=== PATIENT | male | born 1940 | race Caucasian/White ===

== ENCOUNTER → 2017-06-28 | Outpatient (CLI) | payer BC ==
[2017-06-28 10:12] LABS: BLOOD UREA NITROGEN 16 mg/dl (7-18); BUN/CREATININE RATIO 15.8 (10-20); CALCIUM 9.5 mg/dl (8.5-10.1); CARBON DIOXIDE 28 mmol/L (21-32); CHLORIDE 104 mmol/L (98-107); CHOLESTEROL 186 mg/dl (0-200); CREATININE 0.98 mg/dl (0.60-1.40); GLUCOSE 124 mg/dl (70-99); POTASSIUM 4.3 mmol/L (3.5-5.1); SODIUM 140 mmol/L (136-145)
[2017-06-28 10:15] LABS: ESTIMATED AVERAGE GLUCOSE 126 mg/dl; HA1C FLAG Normal (Normal)
[2017-06-28 10:16] LABS: CHOLESTEROL/HDL RATIO 5.2; HDL CHOLESTEROL 36 mg/dl; LDL CHOLESTEROL CALCULATED 78 mg/dl; TRIGLYCERIDES 358 mg/dl (0-150); VERY LOW DENSITY LIPOPROT CALC 72 mg/dl
== END | disposition home or self-care (01) ==
LOC: C.LAB1850 06:57
PROVIDERS: ATTEND Internal Medicine
DX: I10 Essential (primary) hypertension (principal); E78.5 Hyperlipidemia, unspecified; R73.9 Hyperglycemia, unspecified

== ENCOUNTER → 2017-07-23 | Outpatient (CLI) | payer BC | END | disposition home or self-care (01) | LOC: C.RDSM 15:56 | PROVIDERS: ATTEND Family Medicine Sports Medicine | DX: M25.561 Pain in right knee (principal) ==

== ENCOUNTER → 2017-08-15 | Outpatient (CLI) | payer BC ==
[2017-08-15 12:43] LABS: THYROID STIMULATING HORMONE 2.5 uIu/ml (0.300-4.500)
== END | disposition home or self-care (01) ==
LOC: C.LAB1850 10:15
PROVIDERS: ATTEND Internal Medicine
DX: M79.1 Myalgia (principal)

== ENCOUNTER → 2017-08-19 | Outpatient (CLI) | payer BC | END | disposition home or self-care (01) | LOC: C.LAB1850 09:15 | PROVIDERS: ATTEND Internal Medicine Rheumatology | DX: M54.30 Sciatica, unspecified side (principal); R89.4 Abnormal immunological findings in specimens from other organs, systems and tissues ==

== ENCOUNTER → 2017-08-20 | Outpatient (CLI) | payer BC ==
--- NOTE | 2017-08-20 08:40 | DIAGNOSTIC IMAGING REPORT ---
MRI THE RIGHT KNEE NO CONTRAST CLINICAL HISTORY: Right knee pain. Knee locks up and gives out. COMPARISON STUDY: Conventional radiographic study performed 07/23/2017 FINDINGS: Imaging was performed in the sagittal, coronal, and axial planes. There are no areas of marrow replacement to indicate neoplasm. There is marrow edema within the anterior aspect of the tibial plateau subjacent to the anterior cruciate insertion site. Posterior cruciate ligament appears intact. There is extensive mucoid degeneration within the anterior cruciate ligament The quadriceps and patellar tendons appear intact. The medial and lateral collateral ligaments appear intact. There is a small suprapatellar joint effusion. 6 intra-articular loose bodies are visualized. The largest measures 15 mm. There is medial extrusion of the medial meniscus and there is a complex tear the posterior horn. There are degenerative changes within the lateral meniscus. There is extensive chondrosis involving the medial joint compartment. There is chondromalacia patella. The patellar retinacular structures appear intact. 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 Extrusion of the medial meniscus with a complex tear involving the posterior horn 3. 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 Chondromalacia patella. 4. Mucoid degeneration of the anterior cruciate ligament. Electronically signed by: Oscar Mascorro M.D. 08/20/2017 8:38 AM Dictated Date/Time: 08/20/2017 8:31 AM
--- NOTE | 2017-08-20 08:49 | DIAGNOSTIC IMAGING REPORT ---
SI JOINTS 3 OR MORE VIEWS CLINICAL HISTORY: M54.30 [id number] Nonspecific immunologic [id number] COMPARISON STUDY: No previous studies for comparison. FINDINGS: No fractures are visualized. 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 Degenerative changes are present within the lumbar spine. 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 Electronically signed by: Oscar Mascorro M.D. 08/20/2017 8:47 AM Dictated Date/Time: 08/20/2017 8:46 AM
--- NOTE | 2017-08-20 08:52 | DIAGNOSTIC IMAGING REPORT ---
L-SPINE MIN 4 VIEWS ROUTINE CLINICAL HISTORY: M54.30 [id number] Nonspecific immunologic [id number] COMPARISON STUDY: No previous studies for comparison. FINDINGS: No acute fractures are visualized. There are moderate multilevel degenerative changes. No destructive lesions are evident. There is a grade 1 spondylolisthesis of L4 on L5. There is mild to moderate multilevel facet joint arthropathy. IMPRESSION: 1. Moderate multilevel degenerative change 2. No fractures identified. Electronically signed by: Oscar Mascorro M.D. 08/20/2017 8:51 AM Dictated Date/Time: 08/20/2017 8:50 AM
== END | disposition home or self-care (01) ==
LOC: C.MRI 07:08
PROVIDERS: ATTEND Family Medicine Sports Medicine
DX: M54.30 Sciatica, unspecified side (principal); R89.4 Abnormal immunological findings in specimens from other organs, systems and tissues; M25.461 Effusion, right knee; D48.0 Neoplasm of uncertain behavior of bone and articular cartilage; S83.241A Other tear of medial meniscus, current injury, right knee, initial encounter; X58.XXXA Exposure to other specified factors, initial encounter

== ENCOUNTER → 2017-08-23 | Outpatient (CLI) | payer BC | LOC: C.RDSM 14:50 | PROVIDERS: ATTEND Orthopaedic Surgery | DX: M25.569 Pain in unspecified knee (principal) ==

== ENCOUNTER → 2017-10-10 | Outpatient (CLI) | payer BC ==
[~2017-10-10] MED LIST: FERR1TAB23 PO; LOSA50TA6 PO; MULT-506 PO
== END | disposition home or self-care (01) ==
LOC: C.LAB1850 07:12
PROVIDERS: ATTEND Internal Medicine
DX: E78.1 Pure hyperglyceridemia (principal); E78.5 Hyperlipidemia, unspecified

== ENCOUNTER → 2017-10-11 | Outpatient (CLI) | payer BC ==
[2017-10-11 16:37] LABS: HEMATOCRIT 48.5 % (42-52); HEMOGLOBIN 16.5 g/dL (14.0-18.0); MEAN CELL VOLUME 93.3 fL (80-100); MEAN CORPUSCULAR HEMOGLOBIN 31.7 pg (25-34); MEAN PLATELET VOLUME 10.1 fL (7.4-10.4); PLATELET COUNT 217 K/uL (130-400); RED CELL DISTRIBUTION WIDTH CV 13.1 % (11.5-14.5); RED CELL DISTRIBUTION WIDTH SD 44.8 fL (36.4-46.3)
[2017-10-11 17:26] LABS: BLOOD UREA NITROGEN 21 mg/dl (7-18); CALCIUM 9.5 mg/dl (8.5-10.1); CARBON DIOXIDE 30 mmol/L (21-32); CREATININE 1.06 mg/dl (0.60-1.40); GLUCOSE 108 mg/dl (70-99); POTASSIUM 3.5 mmol/L (3.5-5.1); SODIUM 139 mmol/L (136-145)
== END | disposition home or self-care (01) ==
LOC: C.LAB1850 15:48
PROVIDERS: ATTEND Physician Assistant
DX: Z01.812 Encounter for preprocedural laboratory examination (principal); M23.40 Loose body in knee, unspecified knee

== ENCOUNTER → 2017-10-21 | Day surgery (SDC) | payer BC ==
[2017-10-09 12:39] VITALS: Ht 180.3 cm; Wt 111.4 kg
[~2017-10-21] VITALS: Ht 180.3 cm; Wt 111.4 kg
[~2017-10-21] MED LIST changes: +ATROPINE SULFATE 0.1 MG/ML 5ML SYR IV PRN; +CEFAZOLIN 2000MG IV PUSH 10 ML IV SCH; +DEXAMETHASONE SOD INJ 4 MG/ML VIAL ONE; +EpHEDrine SULFATE INJ 50 MG/ML AMP IV PRN; +EpHEDrine SULFATE INJ 50 MG/ML AMP ONE; +EpINEphrine HCL INJ 1 MG/ML 5ML SYRINGE ONE; +FENTANYL CITRATE INJ 50 MCG/1 ML 2 ML VIAL IV PRN; +FENTANYL CITRATE INJ 50 MCG/1 ML 2 ML VIAL ONE; +HYDROmorphone INJ 1 MG/ML SYR IV PRN; +LACTATED RINGER'S 1000ML 1,000 ML IV SCH; +LIDO 2%/EPINEPHRINE 1:100000 20 ML VIAL INFIL ONE; +LIDOCAINE HCL 2% 2 ML VIAL (20MG/ML) ONE; +MIDAZOLAM HCL 1 MG/ML 2ML VIAL ONE; +ONDANSETRON INJ 2 MG/ML 2 ML VIAL IV PRN; +ONDANSETRON INJ 2 MG/ML 2 ML VIAL ONE; +OXYCODONE/ACETAMINOPHEN 5-325 TAB PO PRN; +PROPOFOL IV EMULSION 10 MG/ML 20 ML VIAL IV ONE; +SODIUM CHLORIDE 0.9% 1000ML 1,000 ML IV SCH; +SODIUM CHLORIDE 0.9% INJ 10 ML VIAL ONE
--- NOTE | 2017-10-21 06:45 | History & Physical Bridge - [place] ---
H&P Re-Evaluation Bridge Note: I have examined the patient, reviewed the History & Physical and in the interval since the performance of the History & Physical I have noted the following changes of clinical significance: No changes noted
--- NOTE | 2017-10-21 08:14 | [facility] Post Operative Brief Note ---
Immediate Operative Summary Operative Date Oct 21, 2017. Pre-Operative Diagnosis Right Knee Loose Bodies Post-Operative Diagnosis Same Procedure(s) Performed Right Knee Arthroscopic Partial Medial & Partial Lateral Meniscectomies, Loose Body Removal Surgeon Dr. 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 Chondroplasty and major synovectomy performed. Tears of body of medial meniscus and posterior horn of lateral meniscus trimmed to stable margin. 2 large loose bodies removed from the anterior knee. Fluids (cc crystalloids) 650 cc Specimens None Drains None Anesthesia General with local Complication(s) None Disposition Recovery Room / PACU
[2017-10-21] MEDS: ROPIVACAINE 0.5% 5 MG/ML 30 ML VIAL ONE ×2 (08:21→08:22)
--- NOTE | 2017-10-21 08:32 | [facility] Operative Report ---
Operative Report Operative Date Oct 21, 2017. Pre-Operative Diagnosis Right Knee Loose Bodies Post-Operative Diagnosis Same Procedure(s) Performed Right Knee Arthroscopic Partial Medial & Partial Lateral Meniscectomies, Loose Body Removal Surgeon Dr. Rai Print Machine Operator Surgeon(s) Roseann Talbert PA-C Estimated Blood Loss 5 ml Findings presence of multiple loose bodies and tear of Rt medial and lateral meniscus Fluids (cc crystalloids) 650 cc Specimens None Complication(s) None Disposition Recovery Room / PACU I attest to the content of the Intraoperative Record and any orders documented therein. Any exceptions are noted below.
--- NOTE | 2017-10-21 08:36 | Discharge Instructions ---
Discharge Instructions Date of Service Oct 21, 2017. Admission Reason for Admission: Right Knee Loose Bodies Discharge Discharge Diagnosis / Problem: Right knee loose bodies; partial tear of medial and lateral meniscus Discharge Goals Goal(s): Decrease discomfort, Improve function, Increase independence Activity Recommendations Activity Limitations: as noted below Lifting Limitations: none Exercise/Sports Limitations: until after follow-up appointment May Resume Sexual Activity: when tolerated Shower/Bathe: tomorrow, keep incision dry Driving or Machine Use: resume 3 days after discharge Weightbearing Status: Right weightbearing (as tolerated with aide of crutches) . Instructions / Follow-Up Instructions / Follow-Up Post-operative Instructions Dear Patient and Family/Friends, Before you are discharged from the hospital, it is important to know what to expect when you get home after surgery. To that end, we have created this sheet of discharge instructions which covers many commonly asked questions. Make sure you go through this sheet in its entirety with your nurse before you are discharged. Please note that we will go over the specifics of your surgery and recovery when you return for your first post-operative visit. Sincerely, Dr. Rai Pain Expect to be in a fair amount of pain after surgery. Remember, our goal is not to eliminate your pain, but to make it tolerable. It is a good idea to stay ahead of your pain by taking the medications you were prescribed once you get home. Typically, the pain starts improving 3-7 days after surgery. You should start weaning off the narcotic pain medication (oxycodone, hydrocodone, hydromorphone, morphine) as soon as your pain improves. Please call our office if your pain is not adequately controlled. Ice Ice your operative site at least 5 times a day for 15-30 minutes at a time. Make sure you have a thin cloth between the ice or cooling unit and your skin to prevent arce bite. This is especially important if you received a nerve block. Continue icing your operative site for the first 5-7 days after surgery , then as needed. Diet/Nausea/Vomiting Start by drinking clear liquids and eating crackers. If you can tolerate this, then you may resume your normal diet. If you feel nauseated or vomit, take Zofran/ondansetron (if prescribed). Please call our office if you have intractable nausea or vomiting, or, if after hours, you may go to the Emergency Room for help. Constipation Constipation is a common side effect of narcotic pain medication. If you have not had a bowel movement within 2 days after surgery, we recommend purchasing an over the counter laxative such as Milk of Magnesia, Dulcolax, or Miralax from a local pharmacy, and taking it as instructed. Call our clinic if any questions. Slings and Braces If you were placed in a sling or brace, it must be worn at all times, including sleep. You may remove your sling or brace for physical therapy, home exercises , and showering. The length of time you will be in your brace and range of motion restrictions depends on what surgery you had; these details will be reviewed at your first post-operative appointment. Nerve block The anesthesia team sometimes places a nerve block to help with post-operative pain control. This results in significant numbness and inability to move the extremity. The nerve block usually wears off in 8-12 hours, but sometimes can last up to 24 hours. Please call our office if you are still unable to move your extremity after 24 hours, unless you received a pain pump to take home. Nerve blocks typically wear off quickly, so start taking pain medication as soon as you start feeling soreness near your surgical site. Weight bearing and Range of Motion. Do not bear any weight through your operative extremity immediately after surgery. If you had upper extremity surgery, do not lift anything with that arm. If you are in a knee brace, keep it locked in place until your follow-up. We will discuss your weight bearing, range of motion, and lifting restrictions in detail at your first post-operative appointment. Continuous Passive Motion (CPM) Machine If you were prescribed a CPM machine, it will start after your first post- operative appointment, at which time we will give you instructions on the range of motion settings and duration of treatment Physical therapy You will be given a prescription for physical therapy or occupational therapy at your first post-operative appointment. Typically, patients start therapy within 1 week of surgery Wound care and showering We will inspect your wound at your first post-operative visit, and may do a dressing change at that time. Most patients will be in a water-proof dressing that is removed 14 days after surgery. It is normal to see some dried blood on the dressing. Do not remove your dressing, paper strips or sutures yourself unless you are given permission. Showering is allowed the day after surgery. Do not scrub or remove any dressings. The wound should not be submerged underwater (i.e. in a bathtub or pool) until 4 weeks after surgery BASILIO stockings If you were given white stockings, these are to be worn at all times except to shower (on both legs) for the first 2 weeks after surgery. Driving You may not drive while taking narcotic pain medication or while in a cast, splint, sling or brace. You, the patient, need to make the final determination about when you are safe to drive, however, the earliest you may consider driving after surgery is below: Hand/Wrist/Elbow Surgery: 3 days Shoulder Surgery: 2 weeks Hip,/Knee/Ankle Surgery: 4 weeks Fracture repair: 6 weeks Return to Work Your return to work depends on what surgery was done and what type of work you do. Please bring any paperwork your employer needs completed to your first post -operative visit. Also, bring a description of your job duties, as this helps us to understand what risks you may face at work. Travel Avoid long distance travel (greater than 1 hour) in airplanes and cars for the first 6 weeks after surgery. If you must travel, you need to have a Doppler ultrasound done before you travel to rule out a blood clot in your legs. Follow-up You should have a follow-up appointment already scheduled 1-2 days after surgery. If not, please contact our office to make this appointment before you leave the hospital. When to call the office It is normal to have swelling and bruising in the limb that was operated on. This will improve with time. It is also normal to have fevers for the first 2 days after surgery. Reasons you should call your doctor include: Uncontrolled pain; Nausea, vomiting, or constipation that does not improve with medication; Fevers over 101.5, chills, sweats; Drainage or bleeding from the wound; Foul odor; Spreading areas of redness; Any other concerns Current Hospital Diet Patient's current hospital diet: Discharge Diet Recommended Diet: Regular Diet Procedures Procedures Performed: Right Knee Arthroscopic Partial Medial & Partial Lateral Meniscectomies, Loose Body Removal Pending Studies Studies pending at discharge: no Laboratory Results Lipid Panel Test 10/10/17 07:12 Range/Units Triglycerides Level 205 H 0-150 mg/dl Cholesterol Level 164 0-200 mg/dl HDL Cholesterol 40 mg/dl Cholesterol/HDL Ratio 4.1 LDL Cholesterol, Calculated 83 mg/dl Medical Emergencies . Who to Call and When: Medical Emergencies: If at any time you feel your situation is an emergency, please call 911 immediately. . Non-Emergent Contact Non-Emergency issues call your: Primary Care Provider Call Non-Emergent contact if: you have a fever, temperature is above 101.5, your pain is not controlled, your pain is worsening, wound has increased drainage, you have any medication questions . "Provider Documentation" section prepared by Amor Talbert. . VTE Core Measure Inpt VTE Proph given/why not?: Other Anticoagulation (Aspirin EC 81 mg), Nidia NIETO Drug Monitoring Program Search Results: patient reviewed within database, no issues identified, see additional documentation
--- NOTE | 2017-10-21 08:46 | OPERATIVE REPORT ---
DATE OF OPERATION: 10/21/2017 PREOPERATIVE DIAGNOSES: Right knee loose bodies and tears of the medial and lateral menisci. POSTOPERATIVE DIAGNOSES: Same and extensive synovitis and grade 3 chondromalacia of the knee. OPERATIONS PERFORMED: 1. Right knee arthroscopy and loose body removal. 2. Right knee partial medial and lateral meniscectomy. 3. Right knee major synovectomy 4. Right knee chondroplasty all compartments. SURGEON: Porfirio Rai MD CALCULUS TUTOR: Roseann Talbert. IV FLUIDS: 650 mL of crystalloid. ESTIMATED BLOOD LOSS: 5 mL. SPECIMENS: None. COMPLICATIONS: None. INDICATIONS: Mr. Deutsch is a 77-year-old gentleman who has had episodes of intermittent catching in his knee with sharp excruciating pains. X-rays and MRI demonstrated loose bodies throughout the knee including an anterior aspect of the joint. He states most of his symptoms are anterior in location when it is painful. He says that his pain is not very bad at rest. I had a long discussion with him about the risks and benefits of surgery, alternatives to surgery and expected outcomes. After reviewing all these, he elected to proceed with surgery. All questions were answered. Informed consent was signed. OPERATIVE FINDINGS: 1. The cartilage surfaces of the knee including the patellofemoral, medial compartment and lateral compartment all showed diffuse grade 3 chondromalacia. 2. The medial meniscus showed a degenerative radial tear of the body. There was also degeneration of the posterior horn of the medial meniscus. There was a chondral flap in the posterior aspect of the medial tibial plateau. 3. Lateral compartment showed tearing of the root of the lateral meniscus involving only approximately 40% of the thickness of the meniscus. There was some discoid change to the body of the lateral meniscus as well. 4. The notch showed the ACL and the PCL to be intact. There was 1 loose body that was floating throughout the notch and suprapatellar pouch. A second loose body was attached to the synovium just anterior to the anterior medial meniscal root. 5. There was extensive synovitis in the medial, lateral and suprapatellar pouch of the knee. An extensive synovectomy was performed. The 2 loose bodies were removed arthroscopically. The meniscus tears were trimmed back to a stable margin. The chondral flap on the medial tibial plateau was trimmed with a biter. A gentle chondroplasty to the remainder of the knee with the shaver. DESCRIPTION OF THE OPERATION: The patient was identified in the preoperative holding area, where the surgical site was marked. He was brought back to main operating room, where he was placed on the operating room table and general anesthesia was administered. All bony prominences were padded. Perioperative antibiotics were administered. He was prepped and draped in the normal sterile fashion. Prior to incision, a multidisciplinary timeout was called. All in the room were in agreement. We began by injecting his portal sites with 10 mL of 2% lidocaine with epinephrine. A lateral viewing portal was created followed by medial working portal under direct visualization. A diagnostic arthroscopy was then performed, revealing the above findings. Once a diagnostic arthroscopy was complete, the synovitis in the medial and lateral aspects of the knee was resected. The free floating loose body was removed with a grasper. The loose body anterior to the medial meniscus root was then dissected out with electrocautery and also removed with a grasper. Next, the meniscus tear was probed. Flaps of the radial tear were gently trimmed back with a shaver. The chondral flap that was in the medial compartment of the knee was probed and felt to be unstable and so, this was resected with a meniscal punch. Next, we moved into the lateral compartment, where the meniscus tear and the posterior root was trimmed back. This was with a bitter. We then used the shaver to resect a small discoid portion of the lateral meniscus back to a stable margin. A gentle chondroplasty was performed of his lateral femoral condyle. Next, we moved up in the suprapatellar pouch and extensive synovectomy was performed here. Some chondral wear of the patella was gently debrided with the shaver. Final arthroscopic images were then obtained. The arthroscopic instruments were removed. His portals were closed with inverted 3-0 nylon sutures. Steri-Strips were placed. The knee was injected with 30 mL of 0.5% Naropin without epinephrine into the portal sites as well as into the knee. Sterile dressings were applied. He was awoken from anesthesia and transferred to recovery room in stable condition. POSTOPERATIVE COURSE: The patient will be discharged home from the recovery room. He will be weightbearing as tolerated with crutches for the next 2-3 days as needed. He will return to my clinic tomorrow, where we will review his arthroscopic images. He will be on aspirin for DVT prophylaxis. I attest to the content of the Intraoperative Record and any orders documented therein. Any exceptions are noted below. MTDD
[2017-10-21 09:04] VITALS: TEMP 36.6
--- NOTE | 2017-10-21 09:46 | Anesthesia Progress Nt - [facility] ---
Anesthesia Post Op Note Date & Time Oct 21, 2017 at 09:46 Vital Signs Pain Intensity: 0 Vital Signs Past 12 Hours Date Time Temp Pulse Resp B/P (MAP) Pulse Ox O2 Delivery O2 Flow Rate FiO2 10/21/17 09:04 36.6 70 18 148/85 (106) 97 Room Air 10/21/17 09:00 141/88 10/21/17 08:58 68 15 10/21/17 08:58 68 15 97 10/21/17 08:58 36.5 68 12 147/87 95 Room Air 10/21/17 08:57 74 20 95 10/21/17 08:57 74 20 10/21/17 08:56 147/87 10/21/17 08:52 72 19 99 10/21/17 08:52 71 19 10/21/17 08:50 141/88 10/21/17 08:47 70 11 100 10/21/17 08:47 71 11 10/21/17 08:46 71 11 98 10/21/17 08:46 70 11 10/21/17 08:45 142/85 10/21/17 08:41 72 13 138/70 99 10/21/17 08:41 72 13 10/21/17 08:36 75 13 10/21/17 08:36 74 13 124/76 98 10/21/17 08:32 130/72 10/21/17 08:31 36.4 69 16 130/72 96 Diffusion Mask 6 10/21/17 08:31 70 10/21/17 08:31 70 94 10/21/17 06:53 36.5 73 22 158/102 (120) 94 Room Air Notes Mental Status: alert / awake / arousable, participated in evaluation Pt Amnestic to Procedure: Yes Nausea / Vomiting: adequately controlled Pain: adequately controlled Airway Patency, RR, SpO2: stable & adequate BP & HR: stable & adequate Hydration State: stable & adequate Anesthetic Complications: no major complications apparent
[2017-10-21 09:55] VITALS: BP 149/79; PULSE 86; O2SAT 97
== END | disposition home or self-care (01) ==
LOC: X.SURG 06:13
PROVIDERS: ATTEND Orthopaedic Surgery
DX: S83.241A Other tear of medial meniscus, current injury, right knee, initial encounter (principal); S83.281A Other tear of lateral meniscus, current injury, right knee, initial encounter; X58.XXXA Exposure to other specified factors, initial encounter; M65.861 Other synovitis and tenosynovitis, right lower leg; M23.41 Loose body in knee, right knee; M94.261 Chondromalacia, right knee; Z98.890 Other specified postprocedural states; E66.9 Obesity, unspecified; Z98.52 Vasectomy status; Z82.49 Family history of ischemic heart disease and other diseases of the circulatory system; Z80.42 Family history of malignant neoplasm of prostate; Z80.0 Family history of malignant neoplasm of digestive organs

== ENCOUNTER 2022-01-18 05:09 | Observation (INO) ==
--- NOTE | 2021-12-29 14:23 | PAT Medication Instructions ---
Medication Instructions Date of Service December 29, 2021 Home Medications Medication Instructions Recorded losartan 50 mg tablet 50 mg PO QPM #90 tab 10/16/21 metformin 500 mg tablet 500 mg PO BID #60 tab 10/30/21 ferrous sulfate 325 mg (65 mg iron) tablet (Iron (ferrous sulfate)) 325 mg PO QAM saw palm 160 mg-vit E 100 unit-selen 100 kqy-wtoc-iwladl-pygeum tablet (Prostate Health) 1 cap PO QAM cyclosporine 0.05 % eye drops in a dropperette (Restasis) 1 drp OP QAM losartan 50 mg tablet 50 mg PO QPM metformin 500 mg tablet 500 mg PO BID cholecalciferol (vitamin D3) 50 mcg (2,000 unit) capsule (Vitamin D3) 50 mcg PO QAM cyanocobalamin (vitamin B-12) 1,000 mcg capsule 1,000 mcg PO QAM ibuprofen 200 mg capsule 200 mg PO Q6H PRN psyllium husk 3.4 gram/5.4 gram oral powder (Metamucil) 1 tbsp PO HS ASK your surgeon for instructions ibuprofen 200 mg capsule 200 mg PO Q6H PRN STOP taking 2 weeks before surgery (or as soon as possible) saw palm 160 mg-vit E 100 unit-selen 100 uiv-wxga-rlbsgn-pygeum tablet (DistalMotion) 1 cap PO QAM DO NOT take the morning of surgery ferrous sulfate 325 mg (65 mg iron) tablet (Iron (ferrous sulfate)) 325 mg PO QAM metformin 500 mg tablet 500 mg PO BID cholecalciferol (vitamin D3) 50 mcg (2,000 unit) capsule (Vitamin D3) 50 mcg PO QAM cyanocobalamin (vitamin B-12) 1,000 mcg capsule 1,000 mcg PO QAM Take morning of surgery With a small sip of water, OTHERWISE NOTHING TO EAT OR DRINK AFTER MIDNIGHT: cyclosporine 0.05 % eye drops in a dropperette (Restasis) 1 drp OP QAM Take evening before surgery losartan 50 mg tablet 50 mg PO QPM metformin 500 mg tablet 500 mg PO BID psyllium husk 3.4 gram/5.4 gram oral powder (Metamucil) 1 tbsp PO HS Other Notes If you have any questions please call us at [phone] or [phone] or [phone] or [phone]
--- NOTE | 2022-01-03 09:07 | Anesthesiology Consultation ---
Date of Service January 03, 2022 Assessment & Plan (1) Encounter for pre-operative examination: - COVID screening: Per assessment on 01/03: Patient vaccinated. Travel screen negative, no known COVID-19 positive contacts or current COVID-19 related sympt oms. Surgeon arranging preop COVID testing. Awaiting results. - Check BSG AM DOS Chart Review Chart Review: Acceptable Risk for Surgery and Patient seen in Pre Admission Testing Teaching & Discussion Pre-Anesthesia Teaching/Discussion Notes: Instructed NPO after midnight before surgery,except medications with 15 cc of water. Medication instructions provided according to the PAT guidelines. History Surgery Operation Date: 01/18/22 07:00 Proposed Procedures p Left Total Knee Arthroplasty - Porfirio Rai MD Height/Weight Height: 5 ft 10.5 in Weight: 122.4 kg Allergies Allergy/AdvReac Type Severity Reaction Status Date / Time No Known Drug Allergies Allergy Unknown . Verified 12/29/21 12:27 Medications Home Medications Medication Instructions Recorded Confirmed Last Taken ferrous sulfate 325 mg (65 mg 325 mg PO QAM 07/21/18 12/29/21 07/24/18 07:30 iron) tablet (Iron (ferrous sulfate)) saw palm 160 mg-vit E 100 1 cap PO QAM 07/21/18 12/29/21 07/24/18 07:30 unit-selen 100 lvu-afpj-snhzdu-pygeum tablet ([employer] [facility]) cyclosporine 0.05 % eye drops in a 1 drp OP QAM ea 03/21/21 12/29/21 Unknown dropperette (Restasis) losartan 50 mg tablet 50 mg PO QPM #90 tab 10/16/21 12/29/21 Unknown metformin 500 mg tablet 500 mg PO BID #60 tab 10/30/21 12/29/21 Unknown cholecalciferol (vitamin D3) 50 50 mcg PO QAM 12/29/21 12/29/21 Unknown mcg (2,000 unit) capsule (Vitamin D3) cyanocobalamin (vitamin B-12) 1,000 mcg PO QAM 12/29/21 12/29/21 Unknown 1,000 mcg capsule ibuprofen 200 mg capsule 200 mg PO Q6H PRN 12/29/21 12/29/21 Unknown psyllium husk 3.4 gram/5.4 gram 1 tbsp PO HS 12/29/21 12/29/21 Unknown oral powder (Metamucil) Past Medical History Medical History BPH (benign prostatic hyperplasia) Diabetes mellitus, type 2 NIDDM Hypertension Obesity Osteoarthritis Spinal stenosis Testicular cyst Right (benign)- current Exercise / Class Metabolic Activity III < 4 Walking/Shop/Light housework Past Family History Family History Mother Family hx of colon cancer from colon cancer Colorectal cancer Sister Family hx colonic polyps Father Myocardial infarction Prostate cancer Cardiac disorder Other Coronary heart disease Denies family history of Ovarian cancer Breast cancer Past Surgical History Surgical History History of arthroscopy of right knee History of bilateral cataract extraction History of colonoscopy History of esophagogastroduodenoscopy (EGD) History of hemorrhoidectomy History of tooth extraction wisdom teeth Hx of vasectomy Past Anesthesia History No Hx of Anesthesia Complications and No Family Hx of Anesthesia Complications History of PONV No Hx of PONV and No Hx of Motion Sickness Social History Smoking Status: Former smoker tobacco type: cigarettes Do You Dip or Chew Tobacco: No (QUIT) Smoking End Date: QUIT 40+ YRS AGO Hx Alcohol Use: Yes alcohol intake frequency: holidays/special occasions only Hx Substance Use: No substance use type: does not use Review of Systems Patient denies chest pain, shortness of breath, fever, chills, cough, wheezing, palpitations. Physical Exam Vital Signs VITALS BP 155/82 P 71 TEMP 98.3 SP02 96%RA RESP 16 PHYSICAL Full cervical extension range of motion. Full TMJ range of motion. TMD 3.5 finger breaths Mallampati Score 3 (macroglossia) Dentition: missing molars Lungs: clear throughout to auscultation Cardiac: regular rate and rhythm, no murmurs noted Spine: normal Carotid arteries: negative bruit Extremities: no edema Lab Results Anesthesia Preop Results Results Anesthesia Widget: WBC 4.66 K/uL (4.8-10.8) L 01/03/22 Hgb 15.4 g/dL (14.0-18.0) 01/03/22 Hct 46.1 % (42-52) 01/03/22 Plt 210 K/uL (130-400) 01/03/22 Na 139 mmol/L (136-145) 01/03/22 K 4.4 mmol/L (3.5-5.1) 01/03/22 Cl 104 mmol/L (98-107) 01/03/22 CO2 30 mmol/L (21-32) 01/03/22 BUN 19 mg/dl (6-23) 01/03/22 Creat 1.02 mg/dl (0.6-1.4) 01/03/22 Glucose Level 207 mg/dl (70-99(Fasting)) H 01/03/22 PT 10.9 Seconds (9.0-12.0) 01/03/22 PTT 25.6 Seconds (21.0-31.0) 01/03/22 INR 1.0 (0.9-1.1) 01/03/22 HA1c 7.1 % (4.5-5.6) H 01/03/22 Urine Color Yellow 01/03/22 Urine Appearance Clear (Clear) 01/03/22 Urine pH 5.0 (4.5-7.5) 01/03/22 Urine Specific [place] 1.030 (1.000-1.030) 01/03/22 Urine Protein Negative (Negative) 01/03/22 Urine Glucose (UA) 3+ (Negative) H 01/03/22 Urine Ketones Trace (Negative) H 01/03/22 Urine Blood Negative (Negative) 01/03/22 Urine Nitrite Negative (Negative) 01/03/22 Urine Bilirubin Negative (Negative) 01/03/22 Urine Urobilinogen Negative (Negative) 01/03/22 Urine Leukocyte Esterase Negative (Negative) 01/03/22 Blood Type A Positive 01/03/22 Antibody Screen NEGATIVE 01/03/22 Testing Electrocardiogram Date: 01/03/22 SR with first degree AVB at 73bpm. Otherwise normal ECG. No significant change compared to 06/14/98 per gas leak inspector helper review.
--- NOTE | 2022-01-04 16:47 | History & Physical Report ---
Date of Service January 04, 2022 Assessment & Plan (1) Osteoarthritis of left knee: Plan: PRE-OP Diagnosis: Left knee osteoarthritis Planned Procedure: Left total knee arthroplasty Plan: Patient is scheduled to undergo this procedure at the [facility] with 23-hour observation admission on January 18, [address] Porfirio Rai. Risks and complications of the procedure such as: Infection, bleeding, pain, scarring, nerve blood vessel damage, weakness, wound problems, stiffness, incomplete relief of symptoms, hardware failure, hardware loosening, wear, fracture, tendon or ligament injury, blood clots, embolism heart attack, stroke and were explained the patient has visit today. Informed consent to perform the procedure was obtained. Patient also understands risks of proceeding with surgical intervention during the COVID-19 pandemic. Currently he is asymptomatic and understands that he will need to be tested prior to surgery. Patient has his upcoming PCP or clearance with Dr. Carrillo on January 15 at [facility]. He is scheduled to meet with anesthesia later this morning and while there he will obtain a CBC with differential, complete metabolic panel, PT/INR, blood type and screen, urinalysis, urine culture and sensitivity, EKG, hemoglobin A1c and a nasal culture for MRSA. During today's visit we reviewed the total knee packet. Patient states that he is already been contacted by [facility] to do his physical therapy for the first 2 weeks postoperatively. He states that he has a walker he will bring with him on the day of the surgery. He states that he already has a raised toilet seat and shower chair. I advised him that we will keep him overnight for observation admission I will discharge him with pain medications and anti-inflammatories. Advised him that he will need to use antibiotics prior to dental procedures after the surgery. We discussed lectures offered by [facility] via Zoom in regards to joint replacement surgery. I offered him paperwork to obtain a handicap placard for his vehicle, but he states that he already has 1. Patient is scheduled for his 2-week postoperative follow-up visit with myself on . Patient verbalizes understanding of all information provided during this visit. He thanks for the care that he received. If he has questions or concerns prior to surgery, he will contact clinic. History of Present Illness Chief Complaint: Chief Complaint: Left knee pain Primary Care Provider: Vj Carrillo MD History of Present Illness (including history relevant to procedure): This 81-year-old male presents the clinic today for his preoperative history and physical. Patient states that his left knee has been bothering him for over 10 years. It is getting worse over that period of time. Now, he is to the point where he can hardly walk. Pain is in the medial aspect of the knee. It is nonradiating. He has tried taking ibuprofen, modifying his activities, and wearing a brace. He has previously had 2 cortisone shots and these have not helped him all that much. No numbness or tingling down the leg. Review Of Systems: A 12 point review of systems is performed and is unremarkable except for those things stated in the HPI past medical history. Past Medical History: Problems: Osteoarthritis of left knee S/P right knee arthroscopy Preop examination Loose body of knee Effusion, right knee Right knee pain Osteoarthritis of left knee Knee pain, left Dry eyes, bilateral Hypertension Diabetes BPH Obesity Procedure History Procedure Procedure Date Comments Cataract surgery 2011 - bilateral Hemorrhoidectomy Vasectomy Dental surgery Right knee arthroscopy 1967 Allergies and Sensitivities: No Known Medication Allergies Social history: Completely unremarkable Family history: Diabetes, heart disease, cancer and hypertension Current Home Meds: (Last Updated 01/03 08:04) cyanocobalamin (Vitamin B12) cycloSPORINE ophthalmic (Restasis 0.05% ophthalmic emulsion) 1 drop both eyes q12h ergocalciferol (Vitamin D2 2000 intl units oral capsule) losartan (losartan 50 mg oral tablet) 50 mg PO Daily metFORMIN (metFORMIN 500 mg oral tablet) 500 mg PO bid Allergies Allergy/AdvReac Type Severity Reaction Status Date / Time No Known Drug Allergies Allergy Unknown . Verified 12/29/21 12:27 Home Medications Medication Instructions Recorded Confirmed Type ferrous sulfate 325 mg (65 mg 325 mg PO QAM 07/21/18 12/29/21 History iron) tablet (Iron (ferrous sulfate)) saw palm 160 mg-vit E 100 1 cap PO QAM 07/21/18 12/29/21 History unit-selen 100 qxq-ahus-nzqyqm-pygeum tablet ([facility]) cyclosporine 0.05 % eye drops in a 1 drp OP QAM ea 03/21/21 12/29/21 History dropperette (Restasis) losartan 50 mg tablet 50 mg PO QPM #90 tab 10/16/21 12/29/21 Rx metformin 500 mg tablet 500 mg PO BID #60 tab 10/30/21 12/29/21 Rx cholecalciferol (vitamin D3) 50 50 mcg PO QAM 12/29/21 12/29/21 History mcg (2,000 unit) capsule (Vitamin D3) cyanocobalamin (vitamin B-12) 1,000 mcg PO QAM 12/29/21 12/29/21 History 1,000 mcg capsule ibuprofen 200 mg capsule 200 mg PO Q6H PRN 12/29/21 12/29/21 History psyllium husk 3.4 gram/5.4 gram 1 tbsp PO HS 12/29/21 12/29/21 History oral powder (Metamucil) Past Med/Surg History Medical History BPH (benign prostatic hyperplasia) Diabetes mellitus, type 2 NIDDM Hypertension Obesity Osteoarthritis Spinal stenosis Testicular cyst Right (benign)- current Surgical History History of arthroscopy of right knee History of bilateral cataract extraction History of colonoscopy History of esophagogastroduodenoscopy (EGD) History of hemorrhoidectomy History of tooth extraction wisdom teeth Hx of vasectomy Family History Mother Family hx of colon cancer from colon cancer Colorectal cancer Sister Family hx colonic polyps Father Myocardial infarction Prostate cancer Cardiac disorder Other Coronary heart disease Denies family history of Ovarian cancer Breast cancer Social History Smoking Status: Former smoker Second Hand Exposure: No; Hx Alcohol Use: Yes Hx Substance Use: No Preferred Language: Chadian Communication Ability: Effective Railroad Passenger Agent Required: No Beliefs That Will Affect Care: None Current Living Situation: Spouse current occupational status: retired Feels Safe at Home: Yes Childhood Exposure to Second-Hand Smoke: Yes Dental Care, Regularly: Yes Physical Activity Frequency: Does not Exercise Seatbelt Use: always Sunscreen Use: Yes (sometimes) Assistive Devices: Glasses Review of Systems All systems reviewed & are unremarkable except as noted in Subjective Physical Exam Physical Exam: Physical Exam: (relevant to the procedure, including heart and lung evaluation) General: Alert and oriented x3 with proper grooming and hygiene Eyes: Pupils are equal react to light with accommodation. Extraocular moods are intact Throat: Deferred due to COVID-19 precautions Cardiac: Regular rate and rhythm no murmurs or gallops appreciated Lungs: Clear to auscultation throughout with no wheezing, rales or rhonchi Abdomen: Obese, nondistended, nontender with normoactive bowel sounds Extremities: Left knee; range of motion is from 4 degrees of extension to 110 degrees of flexion. There is audible crepitation with passive range of motion. Patient has visible varus malalignment of his knee joint. He experiences medial joint line tenderness when knee is palpated in the flexed position. Patella is not mobile due to arthritic change within the patellofemoral joint. He is cheryl rovascular intact in the left lower extremity but does Walk with a slightly antalgic gait Neuro: Cranial nerves II through XII are intact no motor or sensory deficit Skin: Normal in appearance with no open skin areas or discharge Results & Data ([facility]) Diagnostic Findings Studies (relevant to the procedure): X-rays done include 3 views of the left knee and standing long-leg alignment films. On the alignment films, he is in pathologic varus malalignment with the weightbearing axis passing along the most medial aspect of the medial tibial plateau. He has qops-nv-pydf arthritis seen in the medial compartment and tricompartmental osteophyte formation.
[2022-01-18] MEDS: ACETAMINOPHEN 500 MG TAB PO SCH ×4 (05:50→22:08)
[2022-01-18] MEDS ORDERED: TRANEXAMIC ACID 1,000 MG **IV Pre-op IV SCH (06:00)
[2022-01-18] MEDS ORDERED: ROPIVACAINE 0.5% HCL/PF 150 MG, BUPIVACAINE 0.75% MPF 20 ML, EPINEPHrine 0.15 MG, Ketor... INFIL SCH (06:00)
[2022-01-18] MEDS ORDERED: traMADol HCL 50 MG TABLET PO SCH (06:00)
[2022-01-18] MEDS ORDERED: TRANEXAMIC ACID 1,000 MG **IV Intra-op IV SCH (06:00)
[2022-01-18] MEDS ORDERED: Scopolamine 1 MG TDSY TD SCH (06:00)
[2022-01-18] MEDS ORDERED: LR 60ML/HR IV SCH (06:00)
[2022-01-18] MEDS ORDERED: dexAMETHasone 4 MG TAB PO SCH (06:00)
[2022-01-18] MEDS ORDERED: FAMOTIDINE 20 MG TAB PO SCH (06:00)
[2022-01-18] MEDS ORDERED: CeleBREX 200 MG CAP PO SCH (06:00)
[2022-01-18] MEDS ORDERED: LR 500ML BOLUS, THEN 15ML/HR IV SCH (06:00)
[2022-01-18] MEDS ORDERED: ePHEDrine sulfate 50 MG/ML SYR ONE (06:42)
[2022-01-18] MEDS ORDERED: PROPOFOL IV EMULSION 10 MG/ML 20 ML VIAL IV ONE ×3 (06:42→07:55)
[2022-01-18] MEDS ORDERED: fentaNYL citrate 100 MCG/2 ML VIAL ONE (06:42)
[2022-01-18] MEDS ORDERED: PHENYLEPHRINE 100MCG/ML 5ML SYR ONE (06:42)
[2022-01-18] MEDS ORDERED: LIDOCAINE 2% 2 ML VIAL/AMP(20MG/ML) INFIL ONE (06:42)
[2022-01-18] MEDS ORDERED: MIDAZOLAM HCL 1 MG/ML 2ML VIAL ONE (06:42)
--- NOTE | 2022-01-18 06:45 | History & Physical Bridge Note ---
Date of Service January 18, 2022 History & Physical Bridge Note I have examined the patient, reviewed the History & Physical and in the interval since the performance of the History & Physical I have noted the following changes of clinical significance: no changes noted
[2022-01-18] MEDS ORDERED: ATROPINE SULFATE 0.1 MG/ML 10ML SYR IV PRN (06:46)
[2022-01-18] MEDS ORDERED: fentaNYL citrate 100 MCG/2 ML VIAL IV PRN (06:46)
[2022-01-18] MEDS ORDERED: ONDANSETRON INJ 2 MG/ML 2 ML VIAL IV PRN ×2 (06:46→09:13)
[2022-01-18] MEDS ORDERED: HYDROmorphone INJ 2 MG/ML SYR/VIAL IV PRN (06:46)
[2022-01-18] MEDS ORDERED: ePHEDrine sulfate 50 MG/ML AMP IV PRN (06:46)
[2022-01-18] MEDS ORDERED: ORTHO JOINT ANESTHETIC ONE (06:48)
[2022-01-18] MEDS ORDERED: ROPIVACAINE 0.5% 5 MG/ML 30 ML VIAL ONE (07:26)
[2022-01-18] MEDS ORDERED: BUPIVACAINE 0.5 % 5 MG/1 ML PF 10ML VIAL ONE (07:26)
--- NOTE | 2022-01-18 09:10 | Operative Report ---
Post Operative Report Pre & Post Diagnosis Operation Date: 01/18/22 07:00 Pre-Op Diagnosis: Left Knee Osteoarthritis Post-Op Diagnosis: Left Knee Osteoarthritis I identified the patient and participated in the time-out.: Yes Procedure Operation Date: 01/18/22 07:00 Actual Procedures p Left Total Knee Arthroplasty(Left) - Porfirio Rai MD Surgeon Porfirio Rai MD Tmr Teacher Ramiro Modi MD, SAM Talbert PA-C, and Phyllis Davenport MS-2 Estimated Blood Loss 100 Findings Consistent with Post-Op Diagnosis Specimens Bone and soft tissue contents left knee Anesthesia Type Spinal MAC Complications none Disposition Disposition: Recovery Room Indications 81-year-old male with left knee arthritis refractory to conservative management. X-rays demonstrate ikwc-zt-didk disease with varus malalignment. I had a long discussion with him about the risks and benefits surgery alternatives to surgery and expected outcomes. After reviewing all these he elected to proceed. All questions were answered. Informed consent was signed. Description of Procedure Patient was identified in the preoperative holding area where the surgical site, left knee, was marked. Patient was brought back to the operating room, placed on the operating room table, and IV sedation was administered. All bony prominences were padded. Perioperative antibiotics and tranexamic acid were administered. Exam under anesthesia was performed. This demonstrated the patient to have a 10 degree flexion contracture and varus malalignment. Range of motion was 10-105 degrees. The surgical site was prepped and draped in the normal sterile fashion. Prior to incision a multidisciplinary timeout was called. All in the room were in agreement. We began by exsanguinating the limb with an Esmarch bandage. Tourniquet was inflated to 250 mmHg. A 16 cm long incision was made over the anterior aspect of the knee. I dissected through the subcutaneous tissues to the level of the fascia. Full-thickness flaps were raised above the fascia. A median parapatellar arthrotomy was made. Half the fat pad was excised. A medial release was performed with Bovie electrocautery on the proximal tibia. Synovitis in the knee and suprapatellar pouch was removed. The patella was then everted and held with 2 towel clips. The thickness of the patella was measured at 30 mm. Patellar resection was performed. Caliper s howed the patella thickness now to be 20 mm. A size 41 oval trial was placed and had a great fit. The 3 drill holes were placed then the trial button was placed. The patellar thickness was now 29 mm which I was very happy with. The patellar trial was then removed, the patella was everted and the knee was flexed up. Osteophytes were removed from the femoral condyles and intercondylar notch. The ACL and PCL were excised. Intramedullary drill guide was drilled into the femur. Distal femoral cutting guide was placed set at 5 degrees of valgus to resect 11 mm off the distal femur. Distal femoral resection was made without difficulty. The tibia was then exposed. The lateral meniscus was sharply excised. The tibial cutting jig was positioned to resect 10 mm off the less involved comp artment. The jig was then pinned in position and the tibial cut was made. We then brought the knee into full extension. Lamina spreaders were placed. The medial meniscus was excised. The extension block was then placed for 6 mm thickness poly. This gave us full extension and excellent stability to varus and valgus. Next the knee was flexed up and the femoral sizing guide was placed. The pa tient sized to a size 8 femur. The 3 degree external rotation jig was used to create 2 holes in the distal femur. The jig was removed and the holes were compared to Whitesides axis and the epicondylar axis. We were happy with the rotation, and therefore placed a size three 4-in-1 cutting jig and pinned this into position. Our 4 cuts were made. The cutting jig was removed. The flexion block was then placed with the knee held at 90 degrees. There was excellent stability to varus and valgus at 90 degrees with no gapping medially or laterally. Next the box cutting jig was placed on the distal femur. The box cut was made and the femoral trial was impacted into position. The tibia was sized to a 8 for a all polyethylene fixed-bearing component. The tibial tray was positioned in external rotation on the cut tibial surface and the knee was brought through a full range of motion. We then pinned the tibial tray into position and used the intramedullary drill followed by the keel punch. The trial polyethylene was then placed and the knee was brought through a full range of motion. I was very happy with the stability through a full range of motion, and the patellar tracking was excellent. Next the trial components were removed. I then injected the posterior capsule and periosteum with the periarticular injection cocktail. The bone cuts were then irrigated and dried while the cement was mixed on the back table. The femoral component was cemented on first. Excess cement was removed. A lap sponge was placed over the femoral component for protection, then the tibia was subluxated anteriorly. The all polyethylene tibial component was then cemented in place. Again excess cement was removed. The knee was brought into full extension and held there until the cement cured. The patella was cemented and clamped. Dilute Betadine solution was then allowed to irrigate the knee while the cement cured. Once the cement was fully cured, the tourniquet was let down and meticulous hemostasis was ensured. The wound was irrigated out with copious amounts normal saline. The knee was brought through a full range of motion and we were very happy with the patella tracking and the stability. We then began to close. Interrupted 0 Vicryl suture was used to repair the patellar retinaculum in [id number] fashion. The quadriceps and patellar tendons were run with #1 E thibond. The deep dermal layer was closed with interrupted 2-0 Vicryl. Dermabond and Zipline was used for the skin. A compressive dressing was placed. Patient's sedation was lifted and was transferred to recovery room in stable condition. Summary of implants: Depuy Attune Posterior Stabilized Cemented Femur, size 8 Attune All-polyethylene tibial component, posterior stabilized 6 mm thickness, size 8 Attune patella medialized dome, size 41 2 batches of simplex high viscosity bone cement Postoperative course: Patient will be admitted to the floor for pain control and monitoring. Weightbearing as tolerated with a walker with no knee range of motion for 48 hours. Aspirin for DVT prophylaxis. I attest to the content of the Intraoperative Record and any orders documented therein. Any exceptions are noted below.
[2022-01-18] MEDS ORDERED: NALOXONE HCL 0.4 MG/1 ML VIAL/CARP IV PRN (09:13)
[2022-01-18] MEDS ORDERED: TAMSULOSIN HCL 0.4 MG CAP PO PRN (09:13)
[2022-01-18] MEDS ORDERED: METOCLOPRAMIDE HCL INJ 5 MG/ML 2 ML VIAL IV PRN (09:13)
[2022-01-18] MEDS ORDERED: PHARMACY GLYCEMIC MGMT CONSULT PRN (09:13)
[2022-01-18] MEDS ORDERED: oxyCODONE HCL IR 5 MG TAB (IMMEDIATE RELEASE) PO PRN (09:13)
[2022-01-18] MEDS ORDERED: ALUMINUM/MAGNESIUM SUSP 30 ML UDC PO PRN (09:13)
[2022-01-18] MEDS ORDERED: diphenhydrAMINE 50 MG/ML VIAL IV PRN (09:13)
[2022-01-18] MEDS ORDERED: bisacodyL 10 MG SUPP PR PRN (09:13)
[2022-01-18] MEDS ORDERED: MAGNESIUM HYDROXIDE SUSP 30 ML UDC PO PRN (09:13)
--- NOTE | 2022-01-18 09:13 | Operative Report ---
Post Operative Report Pre & Post Diagnosis Operation Date: 01/18/22 07:00 Pre-Op Diagnosis: Left Knee Osteoarthritis Post-Op Diagnosis: Left Knee Osteoarthritis I identified the patient and participated in the time-out.: Yes Procedure Operation Date: 01/18/22 07:00 Actual Procedures p Left Total Knee Arthroplasty(Left) - Porfirio Rai MD Surgeon Porfirio Rai MD [place] Rug Setter Ramiro Modi MD, SAM Talbert PA-C, and Phyllis Davenport MS-2 Estimated Blood Loss 100 Findings Consistent with Post-Op Diagnosis Specimens none Description of Procedure I was present during the entire case assisting with positioning, prepping, draping, wound retraction, wound closure, dressing and immobilizer placement. Fellow also present. I served as an extra set of hands during the case. Please see Dr. Rai procedure note for specifics of the case. I attest to the content of the Intraoperative Record and any orders documented therein. Any exceptions are noted below.
--- NOTE | 2022-01-18 09:23 | Operative Report ---
Post Operative Report Pre & Post Diagnosis Operation Date: 01/18/22 07:00 Pre-Op Diagnosis: Left Knee Osteoarthritis Post-Op Diagnosis: Left Knee Osteoarthritis I identified the patient and participated in the time-out.: Yes Procedure Operation Date: 01/18/22 07:00 Actual Procedures p Left Total Knee Arthroplasty(Left) - Porfirio Rai MD Surgeon Becky Rai Card Painter Ramiro Modi MD, SAM Talbert PA-C, and Phyllis Davenport MS-2 Estimated Blood Loss 100 Findings Consistent with Post-Op Diagnosis Consistent with post op diagnosis. Specimens No specimens Description of Procedure I participated in prepping dressing and assisted Dr. Rai during the procedure. Please see Dr. Rai note. I attest to the content of the Intraoperative Record and any orders documented therein. Any exceptions are noted below. Supervising Physician Co-Signing Physician Notes Dr. Rai
--- NOTE | 2022-01-18 09:41 | XRay Report ---
TWO VIEWS LEFT KNEE CLINICAL HISTORY: Postoperative examination. FINDINGS: AP and crosstable lateral portable views of the left knee are obtained. A left knee arthrop lasty is in near anatomic alignment. There has been undersurface remodeling of the patella. No acute fracture is seen. There are expected postoperative changes around the knee including soft tissue nathalie a and subcutaneous gas. IMPRESSION: Expected postoperative changes status post left knee arthroplasty. No acute fracture is s een. ACT 112: Negative or not required by law. Electronically signed by: Prashanth Hall M.D. 01/18/2022 9:40 AM
--- NOTE | 2022-01-18 10:51 | Anesthesiology Progress Note ---
Date of Service January 18, 2022 Anesthesia Post Procedure Vital Signs Vital Signs: Temp Pulse Pulse Resp BP Pulse Ox 01/18/22 10:29 36.7 C 85 16 130/79 96 01/18/22 10:00 89 22 125/74 98 01/18/22 09:50 88 16 142/69 H 93 01/18/22 09:40 36.6 C 90 19 128/82 94 01/18/22 09:30 86 12 126/84 98 01/18/22 09:20 87 11 L 129/76 99 01/18/22 09:11 36.6 C 88 16 139/72 97 01/18/22 05:39 37 C 79 18 164/98 H 95 Transfer of Care Handoff Completed per policy Notes Mental Status: alert / awake / arousable and participated in evaluation Patient Amnestic to Procedure: Yes Nausea / Vomiting: adequately controlled Pain: adequately controlled Airway Patency, RR, SpO2: stable & adequate BP & HR: stable & adequate Hydration State: stable & adequate Anesthetic Complications: no major complications apparent and Pt Satisfied with anesthetic care
[2022-01-18] MEDS ORDERED: GLUCAGON FOR INJ 1 MG VIAL IM PRN (11:15)
[2022-01-18] MEDS ORDERED: DEXTROSE 50% 50 ML SYRINGE IV PRN (11:15)
[2022-01-18] MEDS ORDERED: GLUCOSE 40% GEL 15 GM TUBE PO PRN (11:15)
[2022-01-18] MEDS ORDERED: CARBOHYDRATES FOR HYPOGLYCEMIA PO PRN (11:15)
[2022-01-18] MEDS ORDERED: GLUCOSE 10 TABS/TUBE PO PRN (11:15)
[2022-01-18] MEDS ORDERED: NovoLIN-N (NPH) PER UNIT CHARGE SQ ONE (11:30)
[2022-01-18] MEDS: SODIUM CHLORIDE 0.9% 1000ML 1,000 ML IV SCH ×2 (11:35→22:08)
[2022-01-18] MEDS ORDERED: IBUPROFEN 200 MG TAB PO PRN (11:37)
--- NOTE | 2022-01-18 12:08 | Pharmacy Report ---
Pharmacy Glycemic Short Note 2 - Date of Service January 18, 2022 - Glycemic Short BSG Results (Last 24 hours): 01/18/22 01/18/22 09:21 11:38 POC Glucose 182 H 219 H OUTPATIENT ANTIDIABETIC REGIMEN: * metformin 500 mg BID * HbA1C = 7.1% (01/03/22) ASSESSMENT: * Mr Deutsch is an 81 y/o M with a PMH of T2DM on oral medications who presents with L knee surgery. Patient received dexamethasone 8 mg PO preop and de xamethasone 4 mg topically. * BSG after surgery are 182-219 mg/dL. * Will start with NPH 35 units (0.4 units/kg of adjBW) for steroid induced hyperglycemia. * Novolog weight-based stress of 2. * Since BSGs already > 200 mg/dL will preform overnight checks to ensure rapid BSG decrease over 24 hours. PLAN FOR INPATIENT GLYCEMIC CONTROL: * Hold outpatient oral diabetes medications * Basal insulin * NPH 35 units SQ x 1 * Bolus insulin * NovoLog per scale ACHS or Q6hrs while NPO * Goal Range: Low 110 mg/dL - High 140 mg/dL * Correction Factor: 26 mg/dL/unit * Nutritional / Prandial insulin per carb ratio of 1 unit per 6 grams CHO consumed
[2022-01-18] MEDS: INSULIN ASPART PER UNIT SC SCH ×3 (13:02→21:33)
[2022-01-18] MEDS: KETOROLAC TROMETHAMINE 15 MG/ML VIAL IV SCH ×2 (13:04→17:48)
[2022-01-18] MEDS: ceFAZolin 2000MG 2,000 MG/15 ML SYR IV SCH ×2 (14:45→22:49)
[2022-01-18] MEDS ORDERED: TRANEXAMIC ACID / 0.7% NACL 1,000 MG/100 ML BAG IV SCH (15:15)
[2022-01-18] MEDS: Scopolamine CHECK PATCH PLACEMENT SCH (17:04)
[2022-01-18] MEDS ORDERED: metFORMIN HCL 500 MG TAB PO SCH (21:00)
[2022-01-18] MEDS ORDERED: SENNA 8.6 MG TAB PO SCH (21:00)
[2022-01-18] MEDS ORDERED: LOSARTAN POTASSIUM 50 MG TAB PO SCH (21:00)
[2022-01-18] MEDS ORDERED: PSYLLIUM 58.6% POWDER PACKET PO SCH (21:00)
[2022-01-18] MEDS: DOCUSATE SODIUM 100 MG CAP PO SCH (21:33)
[2022-01-19] MEDS: INSULIN ASPART PER UNIT SC SCH ×3 (00:52→09:25)
[2022-01-19] MEDS: Scopolamine CHECK PATCH PLACEMENT SCH ×2 (00:54→09:25)
[2022-01-19] MEDS: KETOROLAC TROMETHAMINE 15 MG/ML VIAL IV SCH ×2 (00:54→05:02)
[2022-01-19] MEDS: ACETAMINOPHEN 500 MG TAB PO SCH (05:02)
[2022-01-19] MEDS: SODIUM CHLORIDE 0.9% 1000ML 1,000 ML IV SCH (05:36)
[2022-01-19 07:44] LABS: BUN Creatinine Ratio 16.4 (10-20); Calcium 8.4 mg/dl (8.5-10.1); Est GFR (Non-African American) 55.3 ml/min; Potassium 3.5 mmol/L (3.5-5.1)
[2022-01-19 07:51] LABS: Hematocrit (blood only) 36.9 % (42-52); Hemoglobin 12.4 g/dL (14.0-18.0); Mean Corpuscular Hemoglobin 31.9 pg (25-34); Mean Corpuscular Hgb Conc 33.6 g/dL (32-36); Mean Corpuscular Volume 94.9 fL (80-100); Mean Platelet Volume 10.2 fL (7.4-10.4); Platelet Count 232 K/uL (130-400); RDW Coefficient of Variation 12.9 % (11.5-14.5); Red Blood Count 3.89 M/uL (4.7-6.1); White Blood Count 11.04 K/uL (4.8-10.8)
[2022-01-19] MEDS ORDERED: FERROUS SULFATE 325 MG TAB PO SCH (09:00)
[2022-01-19] MEDS ORDERED: NON-FORMULARY MEDICATION (Saw-Vit E-Sod Sel-Lyc-Beta-Pyg [Prostate Health] 160-100-100 mg- PO SCH (09:00)
[2022-01-19] MEDS ORDERED: CYANOCOBALAMIN (B-12) 500 MCG TABLET PO SCH (09:00)
[2022-01-19] MEDS ORDERED: CHOLECALCIFEROL 1,000 UNITS 25 MCG TAB PO SCH (09:00)
[2022-01-19] MEDS ORDERED: MULTIVITAMIN TAB PO SCH (09:00)
[2022-01-19] MEDS ORDERED: metFORMIN HCL 500 MG TAB PO SCH (09:00)
[2022-01-19] MEDS ORDERED: ASPIRIN 81 MG ECTAB PO SCH (09:00)
[2022-01-19] MEDS: DOCUSATE SODIUM 100 MG CAP PO SCH (09:24)
--- NOTE | 2022-01-19 09:35 | Orthopedic Progress Note ---
Date of Service January 19, 2022 Assessment & Plan (1) Osteoarthritis of left knee: Plan: Weight bearing as tolerated with walker to assist in ambulation Knee immobilizer when OOB x 48 hours after surgery. Can remove for PT/OT Home health/PT x 2 weeks with [facility] care Frequently ice and elevate You may shower on Post op Day 3. Leave Silverlon dressing in tact. No baths, hot tubs or swimming pools. Keep incision clean and dry. DVT prophylaxis: Aspirin 81mg twice a day for 6 weeks, BASILIO compression stockings for 3 weeks Pain control: oxycodone 5mg q 6 hours as needed, Tylenol 500-1000mg q 8 hours, diclofenac Follow up as scheduled in 2 weeks with [facility]. Please call out office sooner if you have any questions or concerns Admission and Anticipated Discharge Date Admission Date: January 18, 2022 Subjective Pt was seen and examined bedside. POD #1 s/p total knee arthroplasty. Pt was admitted last night for observation. No major events over night. Vitals are stable. Labs unremarkable. X-rays show normal post operative changed. Pt reports they are doing well and pain is controlled. They are tolerating PO intake and voiding adequate amounts. Working well with PT/OT. Pt denies F/C, N/V/D, SOB, CP. Pt deemed medically stable and ready for discharge. Physical Exam Physical Exam: General: Pt laying in hospital bed AA&O, in NAD, calm and cooperative during exam Lower Extremity: Dressing in tact and not saturated. Incisions clean, dry and with minimal drainage and no surrounding erythema, warmth or purulent drainage. Pt has full ROM of ankle and all 5 digits. Pt has 5/5 strength with resisted DF/PF. SLR in tact. Calf supple and non tender. NVI with sensation to light touch distally and good distal pulses present. Lower extremity noted to have good color and temperature with no signs of vascular or lymphatic insufficiency. Results & Data ([facility]) Vital Signs (Past 12 Hours) Vital Signs Temp Pulse Resp BP Pulse Ox 01/19/22 07:39 36.5 C 76 18 158/74 H 97 01/19/22 02:45 36.6 C 79 18 131/68 97 01/18/22 21:58 36.7 C 75 18 112/66 91 Laboratory Results 01/19/22 01/19/22 01/19/22 Range/Units 08:05 06:35 06:35 WBC 11.04 H (4.8-10.8) K/uL RBC 3.89 L (4.7-6.1) M/uL Hgb 12.4 L (14.0-18.0) g/dL Hct 36.9 L (42-52) % MCV 94.9 (80-100) fL MCH 31.9 (25-34) pg MCHC 33.6 (32-36) g/dL RDW Std Deviation 44.0 (36.4-46.3) fL RDW Coeff of Yaa 12.9 (11.5-14.5) % Plt Count 232 (130-400) K/uL MPV 10.2 (7.4-10.4) fL Absolute Nucleated RBC 0.00 (0-0) K/uL Nucleated RBC % (auto) 0.0 % Sodium 137 (136-145) mmol/L Potassium 3.5 (3.5-5.1) mmol/L Chloride 104 (98-107) mmol/L Carbon Dioxide 23 (21-32) mmol/L Anion Gap 10 (3-11) BUN 20 (6-23) mg/dl Creatinine 1.22 (0.6-1.4) mg/dl Est Cr Clr Drug Dosing 62.0 ml/min Est GFR ( Amer) 64.0 ml/min Est GFR (Non-Af Amer) 55.3 ml/min BUN/Creatinine Ratio 16.4 (10-20) Glucose 172 H (70-99(Fasting)) mg/dl POC Glucose 170 H (70-99) mg/dl Calcium 8.4 L (8.5-10.1) mg/dl 01/19/22 01/19/22 01/18/22 Range/Units 04:55 00:29 20:36 WBC (4.8-10.8) K/uL RBC (4.7-6.1) M/uL Hgb (14.0-18.0) g/dL Hct (42-52) % MCV (80-100) fL MCH (25-34) pg MCHC (32-36) g/dL RDW Std Deviation (36.4-46.3) fL RDW Coeff of Yaa (11.5-14.5) % Plt Count (130-400) K/uL MPV (7.4-10.4) fL Absolute Nucleated RBC (0-0) K/uL Nucleated RBC % (auto) % Sodium (136-145) mmol/L Potassium (3.5-5.1) mmol/L Chloride (98-107) mmol/L Carbon Dioxide (21-32) mmol/L Anion Gap (3-11) BUN (6-23) mg/dl Creatinine (0.6-1.4) mg/dl Est Cr Clr Drug Dosing ml/min Est GFR ( Amer) ml/min Est GFR (Non-Af Amer) ml/min BUN/Creatinine Ratio (10-20) Glucose (70-99(Fasting)) mg/dl POC Glucose 165 H 126 H 160 H (70-99) mg/dl Calcium (8.5-10.1) mg/dl 01/18/22 01/18/22 Range/Units 17:16 11:38 WBC (4.8-10.8) K/uL RBC (4.7-6.1) M/uL Hgb (14.0-18.0) g/dL Hct (42-52) % MCV (80-100) fL MCH (25-34) pg MCHC (32-36) g/dL RDW Std Deviation (36.4-46.3) fL RDW Coeff of Yaa (11.5-14.5) % Plt Count (130-400) K/uL MPV (7.4-10.4) fL Absolute Nucleated RBC (0-0) K/uL Nucleated RBC % (auto) % Sodium (136-145) mmol/L Potassium (3.5-5.1) mmol/L Chloride (98-107) mmol/L Carbon Dioxide (21-32) mmol/L Anion Gap (3-11) BUN (6-23) mg/dl Creatinine (0.6-1.4) mg/dl Est Cr Clr Drug Dosing ml/min Est GFR ( Amer) ml/min Est GFR (Non-Af Amer) ml/min BUN/Creatinine Ratio (10-20) Glucose (70-99(Fasting)) mg/dl POC Glucose 176 H 219 H (70-99) mg/dl Calcium (8.5-10.1) mg/dl
--- NOTE | 2022-01-19 11:27 | Discharge Summary ---
Date of Service January 19, 2022 Admission HPI Per Admitting Provider History of Present Illness (including history relevant to procedure): This 81-year-old male presents the clinic today for his preoperative history and physical. Patient states that his left knee has been bothering him for over 10 years. It is getting worse over that period of time. Now, he is to the point where he can hardly walk. Pain is in the medial aspect of the knee. It is nonradiating. He has tried taking ibuprofen, modifying his activities, and wearing a brace. He has previously had 2 cortisone shots and these have not helped him all that much. No numbness or tingling down the leg. Review Of Systems: A 12 point review of systems is performed and is unremarkable except for those things stated in the HPI past medical history. Past Medical History: Problems: Osteoarthritis of left knee S/P right knee arthroscopy Preop examination Loose body of knee Effusion, right knee Right knee pain Osteoarthritis of left knee Knee pain, left Dry eyes, bilateral Hypertension Diabetes BPH Obesity Procedure History Procedure Procedure Date Comments Cataract surgery 2011 - bilateral Hemorrhoidectomy Vasectomy Dental surgery Right knee arthroscopy 1968 Allergies and Sensitivities: No Known Medication Allergies Social history: Completely unremarkable Family history: Diabetes, heart disease, cancer and hypertension Current Home Meds: (Last Updated 01/03 08:04) cyanocobalamin (Vitamin B12) cycloSPORINE ophthalmic (Restasis 0.05% ophthalmic emulsion) 1 drop both eyes q12h ergocalciferol (Vitamin D2 2000 intl units oral capsule) losartan (losartan 50 mg oral tablet) 50 mg PO Daily metFORMIN (metFORMIN 500 mg oral tablet) 500 mg PO bid Admission Exam Per Admitting Provider Physical Exam: (relevant to the procedure, including heart and lung evaluation) General: Alert and oriented x3 with proper grooming and hygiene Eyes: Pupils are equal react to light with accommodation. Extraocular moods are intact Throat: Deferred due to COVID-19 precautions Cardiac: Regular rate and rhythm no murmurs or gallops appreciated Lungs: Clear to auscultation throughout with no wheezing, rales or rhonchi Abdomen: Obese, nondistended, nontender with normoactive bowel sounds Extremities: Left knee; range of motion is from 4 degrees of extension to 110 degrees of flexion. There is audible crepitation with passive range of motion. Patient has visible varus malalignment of his knee joint. He experiences medial joint line tenderness when knee is palpated in the flexed position. Patella is not mobile due to arthritic change within the patellofemoral joint. He is neurovascular intact in the left lower extremity but does Walk with a slightly antalgic gait Neuro: Cranial nerves II through XII are intact no motor or sensory deficit Skin: Normal in appearance with no open skin areas or discharge Principal Diagnosis Left knee osteoarthritis Discharge Exam General: Pt laying in hospital bed AA&O, in NAD, calm and cooperative during exam Lower Extremity: Dressing in tact and not saturated. Incisions clean, dry and with minimal drainage and no surrounding erythema, warmth or purulent drainage. Pt has full ROM of ankle and all 5 digits. Pt has 5/5 strength with resisted DF/PF. SLR in tact. Calf supple and non tender. NVI with sensation to light touch distally and good distal pulses present. Lower extremity noted to have good color and temperature with no signs of vascular or lymphatic insufficiency. Discharge Data Allergies Allergy/AdvReac Type Severity Reaction Status Date / Time No Known Drug Allergies Allergy Unknown . Verified 01/18/22 05:32 Procedures Performed Operation Date: 01/18/22 07:00 Actual Procedures p Left Total Knee Arthroplasty(Left) - Porfirio Rai MD Ordered Studies 01/18/22 05:00 US - OR guided needle placemen Routine 01/18/22 06:46 US - OR guided needle placemen Routine Hospital Course (1) Osteoarthritis of left knee: Patient had an uneventful overnight stay following Left Total Knee arthroplasty. He did well with PT this AM and will discharged home today with [facility]. Weight bearing as tolerated with walker to assist in ambulation Knee immobilizer when OOB x 48 hours after surgery. Can remove for PT/OT Home health/PT x 2 weeks with [facility] care Frequently ice and elevate You may shower on Post op Day 3. Leave Silverlon dressing in tact. No baths, hot tubs or swimming pools. Keep incision clean and dry. DVT prophylaxis: Aspirin 81mg twice a day for 6 weeks, BASILIO compression stockings for 3 weeks Pain control: oxycodone 5mg q 6 hours as needed, Tylenol 500-1000mg q 8 hours, diclofenac Follow up as scheduled in 2 weeks with [facility]. Please call out office sooner if you have any questions or concerns Total Time Total Time Spent Total Time Spent (In Minutes): 15 mins Discharge Plan Discharge Items Patient Disposition: Home - Home Health Services Reason For Visit: Left Knee Osteoarthritis Discharge Diagnosis: Left knee osteoarthritis Activity: As commented below Lifting: None Bathing: Keep incision dry Bathing Comment: may shower tomorrow Sexual Activity: Wait until after follow-up appointment Exercise/Sports: Wait until after follow-up appointment Weightbearing Comment: as tolerated with immobilizer and walker assistance Non-emergency contact: Surgeon Call non-emergency contact if: you have any medication questions, your pain is not controlled, your temperature is above 101.5 and your wound pain has increased Follow-up/Referrals: jV Carrillo MD [Primary Care Provider] - 01/25/22 9:30 am ([facility] ) Diet: Carb Consistent or DM2 Addtl Attending Provider Instructions: Post-operative Instructions Dear Patient and Family/Friends, Before you are discharged from the hospital, it is important to know what to expect when you get home after surgery. To that end, we have created this sheet of discharge instructions which covers many commonly asked questions. Make sure you go through this sheet in its entirety with your nurse before you are discharged. Please note that we will go over the specifics of your surgery and recovery when you return for your first post-operative visit. Sincerely, Dr. Rai Medications 1. Oxycodone 5 mg: take 1-2 tabs every 4-6 hours as needed for post operative pain control. A prescription for this medication will be sent to your pharmacy. 2. Diclofenac Sodium 75 mg: take 1 tab twice daily for pain and inflammation r elief post operatively. This will also be sent to your pharmacy with 1 refill. 3. Aspirin 81 mg: take 1 tab twice daily for the first 30 days post operatively for blood clot prevention. Please purchase. 4. Extra Strengtht Tylenol 500 mg: take 2 tabs every 6-8 hours as needed for additional pain control. Please purchase. Pain Expect to be in a fair amount of pain after surgery. Remember, our goal is not to eliminate your pain, but to make it tolerable. It is a good idea to stay ahead of your pain by taking the medications you were prescribed once you get home. Typically, the pain starts improving 3-7 days after surgery. You should start weaning off the narcotic pain medication (oxycodone, hydrocodone, hydromorphone, morphine) as soon as your pain improves. Please call our office if your pain is not adequately controlled. Ice Ice your operative site at least 5 times a day for 15-30 minutes at a time. Make sure you have a thin cloth between the ice or cooling unit and your skin to prevent arce bite. This is especially important if you received a nerve block. Continue icing your operative site for the first 5-7 days after surgery, then as needed. Diet/Nausea/Vomiting Start by drinking clear liquids and eating crackers. If you can tolerate this, then you may resume your normal diet. If you feel nauseated or vomit, take Zofran/ondansetron (if prescribed). Please call our office if you have intractable nausea or vomiting, or, if after hours, you may go to the Emergency Room for help. Constipation Constipation is a common side effect of narcotic pain medication. If you have not had a bowel movement within 2 days after surgery, we recommend purchasing an over the counter laxative such as Milk of Magnesia, Dulcolax, or Miralax from a local pharmacy, and taking it as instructed. Call our clinic if any questions. Slings and Braces If you were placed in a sling or brace, it must be worn at all times, including sleep. You may remove your sling or brace for physical therapy, home exercises, and showering. The length of time you will be in your brace and range of motion restrictions depends on what surgery you had; these details will be reviewed at your first post-operative appointment. Nerve block The anesthesia team sometimes places a nerve block to help with post-operative pain control. This results in significant numbness and inability to move the extremity. The nerve block usually wears off in 8-12 hours, but sometimes can last up to 24 hours. Please call our office if you are still unable to move your extremity after 24 hours, unless you received a pain pump to take home. Nerve blocks typically wear off quickly, so start taking pain medication as soon as you start feeling soreness near your surgical site. Weight bearing and Range of Motion. Do not bear any weight through your operative extremity immediately after surgery. If you had upper extremity surgery, do not lift anything with that arm. If you are in a knee brace, keep it locked in place until your follow-up. We will discuss your weight bearing, range of motion, and lifting restrictions in detail at your first post-operative appointment. Continuous Passive Motion (CPM) Machine If you were prescribed a CPM machine, it will start after your first post- operative appointment, at which time we will give you instructions on the range of motion settings and duration of treatment Physical therapy You will be given a prescription for physical therapy or occupational therapy at your first post-operative appointment. Typically, patients start therapy within 1 week of surgery Wound care and showering We will inspect your wound at your first post-operative visit, and may do a dressing change at that time. Most patients will be in a water-proof dressing that is removed 14 days after surgery. It is normal to see some dried blood on the dressing. Do not remove your dressing, paper strips or sutures yourself unless you are given permission. Showering is allowed the day after surgery. Do not scrub or remove any dressings. The wound should not be submerged underwater (i.e. in a bathtub or pool) until 4 weeks after surgery BASILIO stockings If you were given white stockings, these are to be worn at all times except to shower (on both legs) for the first 2 weeks after surgery. Driving You may not drive while taking narcotic pain medication or while in a cast, splint, sling or brace. You, the patient, need to make the final determination about when you are safe to drive, however, the earliest you may consider driving after surgery is below: Hand/Wrist/Elbow Surgery: 3 days Shoulder Surgery: 2 weeks Hip,/Knee/Ankle Surgery: 4 weeks Fracture repair: 6 weeks Return to Work Your return to work depends on what surgery was done and what type of work you do. Please bring any paperwork your employer needs completed to your first post-operative visit. Also, bring a description of your job duties, as this helps us to understand what risks you may face at work. Travel Avoid long distance travel (greater than 1 hour) in airplanes and cars for the first 6 weeks after surgery. If you must travel, you need to have a Doppler ultrasound done before you travel to rule out a blood clot in your legs. Follow-up You should have a follow-up appointment already scheduled 1-2 days after surgery. If not, please contact our office to make this appointment before you leave the hospital. When to call the office It is normal to have swelling and bruising in the limb that was operated on. This will improve with time. It is also normal to have fevers for the first 2 days after surgery. Reasons you should call your doctor include: Uncontrolled pain; Nausea, vomiting, or constipation that does not improve with medication; Fevers over 101.5, chills, sweats; Drainage or bleeding from the wound; Foul odor; Spreading areas of redness; Any other concerns Addtl Healthcare Facility Administrator Provider Instructions: The Office of Aging is closed from Saturday-Saturday due to the . Please call on Monday 01/22 to complete [facility] [employer] referral. Their phone # is [phone]. Pending Studies at Discharge: No Stand-Alone Forms: [facility], Opioid Pain Management Medications and DC Order Prescriptions: New oxycodone 5 mg tablet 5 mg PO Q4H Qty: 28 RF: 0 diclofenac sodium 75 mg tablet,delayed release (DR/EC) 75 mg PO BID 30 Days Qty: 60 RF: 1 Continued losartan 50 mg tablet 50 mg PO QPM Qty: 90 RF: 3 metformin 500 mg tablet 500 mg PO BID Qty: 60 RF: 2 Restasis 0.05 % dropperette 1 drp OP QAM RF: 0 ferrous sulfate [Iron (ferrous sulfate)] 325 mg (65 mg iron) Tablet 325 mg PO QAM RF: 0 Prostate Health 160-100-100 mg-unit-mcg Tablet 1 cap PO QAM RF: 0 cholecalciferol (vitamin D3) [Vitamin D3] 50 mcg (2,000 unit) Capsule 50 mcg PO QAM RF: 0 Metamucil 3.4 gram/5.4 gram Powder 1 tbsp PO HS RF: 0 cyanocobalamin (vitamin B-12) 1,000 mcg Capsule 1,000 mcg PO QAM RF: 0 Discontinued ibuprofen 200 mg Capsule 200 mg PO Q6H PRN (Reason: Pain) RF: 0 Discharge Orders: Discharge Order (Routine); Ordered 01/19/22 Ordered By: Marge Tam/Other Patient Handouts: Total Knee Replacement Admission Data Admit Date/Time: 01/18/22 09:13 Attending Provider: Porfirio Rai Admit Provider: Porfirio Rai Primary Care Provider: Vj Carrillo Other Providers: Alisha,Home Health Other Interventions: Discharge Summary Assessment (RN) Last Done: 01/19/22 10:02
[2022-01-19] MEDS ORDERED: CeleBREX 200 MG CAP PO SCH (12:00)
== END 2022-01-19 11:54 | disposition home health service (06) ==
LOC: ASU 05:09 → 3E 05:09